=== PATIENT | male | born 2000 | race Hispanic/Latino ===

== ENCOUNTER 2021-11-10 17:27 | Emergency (ER) | payer SELFPAY ==
--- NOTE | ~2021-11-10 | CT_ITS ---
EXAMINATION: CT brain wo con DATE: 11/10/2021 18:35 INDICATION: head injury TECHNIQUE: Computed tomography (CT) of the head was performed without intravenous contrast. The mA wa s adjusted according to patient size. Iterative reconstruction technique was employed. The dose-lengt h product was 605.33 mGy-cm. COMPARISON: None FINDINGS: No acute intracranial hemorrhage or extra-axial fluid collection. No hydrocephalus, mass, or herniation. No acute ischemic infarct. Unremarkable dural venous sinus attenuation. No acute osseous abnormality. The aerated spaces are clear. IMPRESSION: No acute intracranial process. Reviewed, dictated and finalized at location K.
--- NOTE | ~2021-11-10 | CT_ITS ---
EXAMINATION: CT cervical spine wo con DATE: 11/10/2021 18:35 INDICATION: head injury, neck pain TECHNIQUE: Computed tomography (CT) of the cervical spine was performed without intravenous contrast. Automated exposure control and iterative reconstruction technique were employed. The dose-length pro duct was 458.50 mGy-cm. COMPARISON: None FINDINGS: Counting reference: Craniocervical junction. There are seven cervical type vertebral bodies. Anatomic Variants: None.. Vertebral Body Alignment: Intact. Craniocervical junction: No degenerative change. Alignment intact. Osseous structures/fracture: No evidence of a lytic or blastic process in the visualized spine. N o evidence of acute fracture. Cervical soft tissues: The paraspinal soft tissues planes are maintained. Degenerative changes: No significant degenerative changes. IMPRESSION: No acute fracture or traumatic malalignment in the cervical spine. Reviewed, dictated and finalized at location K.
[2021-11-10 17:33] VITALS: BP 156/96; PULSE 106; RESP 18; TEMP 37.2; O2SAT 100
--- NOTE | 2021-11-10 18:10 | ED.HA ---
HPI - Headache General Chief Complaint: Headache Stated Complaint: headache Time Seen by Provider: 11/10/21 18:06 History of Present Illness HPI Narrative: 21-year-old male presents the emergency room complaints of posterior headache and neck pain. Patient states about a week ago he excellently struck his head on a bed frame. Denied LOC or altered mental status at that time. Patient did state that lights and movement worsens his headache. Patient states he is tried multiple [id number] medications to relieve his symptoms and none of them have worked at this point. Patient states that moving his head to the right side and when he looks down aggravates the pain. Denies any visual or hearing changes. Related Data Allergies Allergy/AdvReac Type Severity Reaction Status Date / Time No Known Allergies Allergy Verified 02/08/18 17:43 Review of Systems Review of Systems: CONSTITUTIONAL: Denies fever, chills, or sweats. EYES: Denies visual changes, redness, or discharge. ENT: Denies rhinorrhea, congestion, sore throat, or otalgia. CARDIOVASCULAR: Denies chest pain, palpitations, or edema. RESPIRATORY: Denies cough or dyspnea. GASTROINTESTINAL: Denies abdominal pain, nausea, vomiting, or diarrhea. GENITOURINARY: Denies dysuria or hematuria. SKIN: Denies rash or itching. MUSCULOSKELETAL: Reports neck pain NEUROLOGIC: Reports headache PSYCHIATRIC: Denies anxiety or depression. Exam Narrative: GENERAL: Well-appearing, well-nourished, and in no acute distress. HEAD: Normocephalic, atraumatic. EYES: PERRLA and EOMI. CHEST: Clear to auscultation. No respiratory distress. No wheezes rales or rhonchi HEART: Regular rate and rhythm. No murmur heard. Normal peripheral pulses. ABDOMEN: Soft, nontender, nondistended, normal active bowel sounds. EXTREMITIES: Normal range of motion. No edema. NECK: Tenderness to the proximal aspect of the left trapezius muscle; full range of motion cervical spine. Bony abnormalities, no step-offs, no midline tenderness SKIN: Warm, dry, no rash. NEURO: No focal deficits. Alert and oriented x3. Cranial nerves II through XII grossly intact. PSYCH: Normal mood and affect. Course Vital Signs Vital signs: Vital Signs Temperature 37.2 C 11/10/21 17:33 Pulse Rate 106 H 11/10/21 17:33 Respiratory Rate 18 11/10/21 17:33 Blood Pressure 156/96 H 11/10/21 17:33 Pulse Oximetry 100 11/10/21 17:33 Temperature 37.2 C 11/10/21 17:33 Pulse Rate 106 H 11/10/21 17:33 Respiratory Rate 18 11/10/21 17:33 Blood Pressure 156/96 H 11/10/21 17:33 Pulse Oximetry 100 11/10/21 17:33 MDM - Headache MDM Narrative Medical decision making narrative: 21-year-old male presents emergency room for evaluation of a headache and neck pain. Patient states that he struck his head on the bed frame about a week ago and has had intermittent headaches since then. Patient does also admit that he has neck pain when he moves his head in certain locations. Differential Diagnosis Differential diagnosis: Likely headache Imaging Data Radiologist's impression: Impressions Cervical Spine CT 11/10/21 18:39 IMPRESSION: No acute fracture or traumatic malalignment in the cervical spine. Head CT 11/10/21 18:39 IMPRESSION: No acute intracranial process. Discharge Plan Discharge Clinical Impression: Headache Qualifiers: Headache type: unspecified Headache chronicity pattern: acute headache Intractability: not intractable Qualified Code(s): R51.9 - Headache, unspecified Cervical muscle strain Qualifiers: Encounter type: initial encounter Qualified Code(s): S16.1XXA - Strain of muscle, fascia and tendon at neck level, initial encounter Patient Disposition: Home, Self-Care Condition: Stable Instructions: Antibiotic Form, Head Injury (ED), Acute Headache (ED) Prescriptions: New methocarbamol 500 mg tablet 500 mg PO TID Qty: 14 RF: 0 Follow-up/Referrals: P
[2021-11-10] MEDS: KETOROLAC (*BKC) 60 MG/2 ML VIAL IM (18:24)
[2021-11-10 18:52] VITALS: BP 118/78; PULSE 74; RESP 16; O2SAT 100
== END 2021-11-10 18:54 | disposition home or self-care (01) ==
PROVIDERS: Emergency Provider Nurse Practitioner Family
DX: S09.90XA Unspecified injury of head, initial encounter (principal); S16.1XXA Strain of muscle, fascia and tendon at neck level, initial encounter; W22.03XA Walked into furniture, initial encounter
CPT/HCPCS: 70450; 72125; 96372; 99284; J1885

== ENCOUNTER 2022-10-27 23:03 | Observation (INO) | payer SELFPAY ==
--- NOTE | ~2022-10-27 | CT_ITS ---
EXAMINATION: CT abdomen pelvis w con DATE: 10/28/2022 02:48 INDICATION: Right lower quadrant pain and nausea TECHNIQUE: Computed tomography (CT) of the abdomen and pelvis was performed with 100 cc Omnipaque 350 intravenous contrast. The dose-length product was 477.08 mGy-cm. Automated exposure control and iter ative reconstruction technique were employed. COMPARISON: None. FINDINGS: Lung bases are unremarkable. No significant pleural or pericardial effusion. The liver, spl een, adrenal glands, pancreas and right kidney are unremarkable. There is a small cyst upper pole of the left kidney. Bladder wall is thickened which may be due to underdistention or cystitis. There is a thickened mildly enhancing appendix with subtle periappendiceal inflammation, suspicious for acute uncomplicated appendicitis. No evidence for perforation or abscess. Gallbladder is present. No free a ir or free fluid. No significant vascular abnormality. No lymphadenopathy. IMPRESSION: 1. Probable acute uncomplicated appendicitis. 2: Mildly thickened bladder wall which may be due to underdistention or cystitis. Reviewed, dictated and finalized at location A. IMPRESSION: 1. Probable acute uncomplicated appendicitis. 2: Mildly thickened bladder wall which may be due to underdistention or cystiti s.
[2022-10-27 23:04] VITALS: BP 164/98; PULSE 102; RESP 18; TEMP 36.2; O2SAT 100
--- NOTE | 2022-10-27 23:59 | ED.ABDPAIN ---
HPI - Abdominal Pain General Chief Complaint: Abdominal Pain <MAURICIO Person Last Filed: 10/28/22 03:23> Stated Complaint: abd pain <MAURICIO Person Last Filed: 10/28/22 03:23> Time Seen by Provider: 10/27/22 23:54 <MAURICIO Person Last Filed: 10/28/22 03:23> History of Present Illness HPI narrative: Patient is a healthy 22-year-old male here for evaluation of right lower quadrant abdominal pain. Patient states this pain began this afternoon after eating lunch which consisted of [employer]. He states he had no appetite all day and has been nauseated but has not vomited. States his pain acutely worsened about an hour ago and is concentrated in his right lower quadrant. Described as a sharp stabbing pain. He thought it was gas pain that he can sleep at outside, and when his pain worsened. He denies any fevers, chills, diarrhea or constipation. <Brittany Anguiano PA-C - Last Filed: 10/28/22 03:23> Related Data Allergies/Adverse Reactions: Allergies Allergy/AdvReac Type Severity Reaction Status Date / Time No Known Allergies Allergy Verified 10/28/22 08:29 <Brittany Anguiano PA-C - Last Filed: 10/28/22 03:23> Review of Systems Review of Systems: Gen.: Denies fevers or chills Eyes: Denies eye pain or visual change ENT: Denies congestion Respiratory: Denies shortness of breath or cough CV: Denies chest pain or palpitations GI: Reports abdominal pain, nausea. denies emesis or diarrhea denies burning, urgency, frequency or hematuria Musculoskeletal: Denies back pain or muscle pain Neuro: Denies numbness, tingling, weakness or focal weakness Skin: Denies rash Except as documented, all other systems reviewed and negative <MAURICIO Person Last Filed: 10/28/22 03:23> PMFSH Past Medical History Medical History: Medical History Anxiety Overweight <JOSSELINE Person-C - Last Filed: 10/28/22 03:23> Surgical History Surgical History: Surgical History H/O of nasal cauterization <Brittany Anguiano PA-C - Last Filed: 10/28/22 03:23> Family History Family History: Family History Grandparent Acute myocardial infarction Diabetes mellitus Hypertension Dementia Alcohol addiction Sibling Asthma Mother Hypertension Father Alcohol addiction <Brittany Anguiano PA-C - Last Filed: 10/28/22 03:23> Social History Social History: Social History Smoking status: Never smoker Alcohol intake: current Drinks per week: 2 Substance use: never Lack of Transportation: No Lack of Food: Never True Current Housing: I Have Housing Concerned About Future Housing: No Difficulty Paying Gas/Electric Bills: No Difficulty Paying for Meds: No Currently Unemployed: No Education: High School Diploma/GED Difficulty w/ Childcare or Family Care: No Spiritual care concerns: No <Brittany Anguiano PA-C - Last Filed: 10/28/22 03:23> Exam Narrative: APPEARANCE: Well appearing, no pain in distress, well-nourished. Head: Normocephalic and atraumatic. EYES: PERRLA/EOMI, conjunctivae clear NOSE: No nasal drainage EARS: External ear normal in appearance THROAT: Oropharynx is clear. Mucous membranes are moist. NECK: Supple. No adenopathy, no masses. RESPIRATORY: Airway patent, respirations nonlabored. Clear to auscultation bilaterally, no rales, rhonchi, wheezing. CARDIOVASCULAR: Regular rate and rhythm without murmurs, rubs, or gallops. ABDOMINAL: Tenderness to palpation in the right lower quadrant. No rebound tenderness or guarding. MUSCULOSKELETAL: Extremities are warm and well-perfused. Moves all extremities well. No edema. NEURO: Normal speech. No focal neurologic
[2022-10-28] VITALS (25 sets, daily range): BP systolic 123–150; BP diastolic 69–104; PULSE 66–90; RESP 14–18; TEMP 36.4–36.8; O2SAT 94–100; BMI 28.0
[2022-10-28] MEDS: MORPHINE SULFATE (*CRX) 2 MG/ML INJ IV PUSH ×3 (00:07→18:24)
[2022-10-28] MEDS: ONDANSETRON INJ 4 MG/2 ML VIAL IV PUSH ×3 (00:07→18:22)
[2022-10-28] MEDS: SODIUM CHLORIDE 0.9% IV 1,000 ML 999 ML IV CONT (00:08)
[2022-10-28 00:26] LABS: Basophils Absolute Auto 0.1 K/mm3 (0.0-0.1); Basophils Percent Auto 0.7 % (0.2-1.2); Eosinophils Absolute Auto 0.5 K/mm3 (0-0.3); Eosinophils Percent Auto 5.8 % (0-4.4); Hematocrit 47.8 % (42.0-52.0); Hemoglobin 15.9 g/dL (14.0-18.0); Immature Granulocyte Absolute 0.03 K/mm3 (0.00-0.031); Immature Granulocyte Percent A 0.3 % (0-0.5); Lymphocytes Absolute Auto 2.87 K/mm3 (0.9-3.2); Lymphocytes Percent Auto 31.4 % (18.3-44.2); Mean Corpuscular HGB Conc 33.3 g/dl (32-36); Mean Corpuscular Hemoglobin 26.3 pg (26-34); Mean Platelet Volume 9.3 fl (7.4-10.4); Monocytes Absolute Auto 0.5 K/mm3 (0.1-0.6); Monocytes Percent Auto 5.9 % (2.6-8.5); Neutrophils Absolute Auto 5.1 K/mm3 (1.3-6.7); Neutrophils Percent Auto 55.9 % (45.5-73.1); Platelet Count Result 242 k/mm3 (150-375); Red Blood Count 6.05 M/mm3 (4.6-6.20); Red Cell Distribution Width 14.6 % (11.5-14.5); White Blood Count 9.2 K/mm3 (4.5-10.0)
[2022-10-28 00:37] LABS: Alanine Aminotransferase 37 U/L (6-50); Albumin Level 4.9 g/dL (3.5-5.1); Alkaline Phosphatase 109 U/L (38-126); Anion Gap 7 mmol/L (8-16); Aspartate Amino Transferase 34 U/L (17-59); Bilirubin,Total 0.6 mg/dL (0.2-1.3); Blood Urea Nitrogen 11 mg/dL (9-20); Calcium 9.3 mg/dL (8.4-10.2); Carbon Dioxide 29 mmol/L (22-30); Chloride 103 mmol/L (98-107); Estimated CRCL calculation 113 ml/min; Estimated Glomerular Filt Rate > 60; Glucose 103 mg/dL (65-110); Lactic Acid Reflex 0.8 mmol/L (0.7-2.0); Lipase 102 U/L (23-300); Potassium 3.5 mmol/L (3.4-5.0); Sodium 139 mmol/L (137-145)
[2022-10-28 02:53] LABS: Appearance Urine Clear (Clear); Bilirubin Urine Negative (Negative); Blood Urine Negative (Negative); Color Urine Yellow (Yellow); Glucose Urine UA Negative (Negative); Ketones Urine Negative (Negative); Leukocyte Esterase Ur Negative LEU/UL (Negative); Nitrate Urine Negative (Negative); Protein Urine Negative (Negative); Urobilinogen Urine 0.2 mg/dL (<2.0); pH Urine 6.5 (5.0-9.0)
[2022-10-28 03:34] LABS: Add Urine Microscopic? NO; Specific Grav Ur 1.037 (1.001-1.035)
--- NOTE | 2022-10-28 03:49 | ADMGEN ---
This patient, Robel Bhagat, was admitted to 2 Medical Room 259-01. Patient/family oriented to hospital policies and general routines including ID bracelet, bed and alarms, visiting hours, pain management, procedures, bathroom and other care routines, personal items, smoking policy, room service/diet, and visiting hours. Information on how to activate the Rapid Response Team has been discussed. Patient/Family are encouraged to report perceived risks to care and to ask questions if they do not understand what they are told or what they should do.
[2022-10-28] MEDS: SODIUM CHLORIDE 0.9% IV 1,000 ML 125 ML IV CONT (04:50)
--- NOTE | 2022-10-28 08:09 | WPDANESEPPF ---
Anes - Initial Pre Proc Eval Procedure: Operation Date: 10/28/22 09:00 Proposed Procedures p Laparoscopic Appendectomy - Daphne Palacios MD Date/Time: 10/28/22 08:09 Surgeon: Daphne Palacios MD Pre Op Diagnosis: acute appendicitits Patient Data Age: 22 Gender: M Height: 1.75 m Weight: 86 kg Last Vital Signs Temp 36.4 C L 10/28/22 06:00 Pulse 83 10/28/22 06:00 Resp 18 10/28/22 06:00 BP 144/99 H 10/28/22 06:00 Pulse Ox 100 10/28/22 06:00 O2 Del Method Room Air 10/28/22 03:59 Home Medications Medication Instructions Recorded Confirmed Type No Home Medications 10/28/22 10/28/22 History Laboratory Tests 10/27/22 10/27/22 10/27/22 23:58 23:58 23:58 WBC 9.2 K/mm3 K/mm3 (4.5-10.0) RBC 6.05 M/mm3 M/mm3 (4.6-6.20) Hgb 15.9 g/dL g/dL (14.0-18.0) Hct 47.8 % % (42.0-52.0) MCV 79.0 fl L fl (80-100) MCH 26.3 pg pg (26-34) MCHC 33.3 g/dl g/dl (32-36) RDW 14.6 % H % (11.5-14.5) Plt Count 242 k/mm3 k/mm3 (150-375) MPV 9.3 fl fl (7.4-10.4) Immature Gran % (Auto) 0.3 % % (0-0.5) Neut % (Auto) 55.9 % % (45.5-73.1) Lymph % (Auto) 31.4 % % (18.3-44.2) Gray % (Auto) 5.9 % % (2.6-8.5) Eos % (Auto) 5.8 % H % (0-4.4) Baso % (Auto) 0.7 % % (0.2-1.2) Lymph # (Auto) 2.87 K/mm3 K/mm3 (0.9-3.2) Gray # (Auto) 0.5 K/mm3 K/mm3 (0.1-0.6) Eos # (Auto) 0.5 K/mm3 H K/mm3 (0-0.3) Baso # (Auto) 0.1 K/mm3 K/mm3 (0.0-0.1) Abs Immat Gran (auto) 0.03 K/mm3 K/mm3 (0.00-0.031) Absolute Neuts (auto) 5.1 K/mm3 K/mm3 (1.3-6.7) Absolute Nucleated RBC 0.0 K/mm3 K/mm3 (0.0-0.012) Nucleated RBC % 0.0 % % (0.0-0.2) Sodium 139 mmol/L mmol/L (137-145) Potassium 3.5 mmol/L mmol/L (3.4-5.0) Chloride 103 mmol/L mmol/L (98-107) Carbon Dioxide 29 mmol/L mmol/L (22-30) Anion Gap 7 mmol/L L mmol/L (8-16) BUN 11 mg/dL mg/dL (9-20) Creatinine 0.90 mg/dL mg/dL (0.7-1.3) Estim Creat Clear Calc 113 ml/min ml/min Estimated GFR > 60 (59 - ) Glucose 103 mg/dL mg/dL (65-110) Lactic Acid 0.8 mmol/L mmol/L (0.7-2.0) Calcium 9.3 mg/dL mg/dL (8.4-10.2) Total Bilirubin 0.6 mg/dL mg/dL (0.2-1.3) AST 34 U/L U/L (17-59) ALT 37 U/L U/L (6-50) Alkaline Phosphatase 109 U/L U/L (38-126) Total Protein 9.0 g/dL H g/dL (6.3-8.2) Albumin 4.9 g/dL g/dL (3.5-5.1) Lipase 102 U/L U/L (23-300) Urine Color Urine Appearance Urine pH Ur Specific [place] Urine Protein Urine Glucose (UA) Urine Ketones Ur Blood (Man) Urine Nitrate Urine Bilirubin Urine Urobilinogen Leukocyte Esterase Rfl 10/28/22 02:46 WBC RBC Hgb Hct MCV MCH MCHC RDW Plt Count MPV Immature Gran % (Auto) Neut % (Auto) Lymph % (Auto) Gray % (Auto) Eos % (Auto) Baso % (Auto) Lymph # (Auto) Gray # (Auto) Eos # (Auto) Baso # (Auto) Abs Immat Gran (auto) Absolute Neuts (auto) Absolute Nucleated RBC Nucleated RBC % Sodium Potassium Chloride Carbon Dioxide Anion Gap BUN Creatinine Estim Creat Clear Calc Estimated GFR Glucose Lactic Acid Calcium Total Bilirubin AST ALT Alkaline Phosphatase Total Protein Albumin Lipase Urine Color Yellow (Yellow) Urine Appearance Clear
[2022-10-28] MEDS: LACTATED RINGERS 1,000 ML 30 ML IV CONT ×2 (08:28→09:56)
--- NOTE | 2022-10-28 08:55 | PM.IMHP ---
H&P: HPI History of Present Illness Date/Time: 10/28/22 08:55 Chief Complaint: acute appendicitis Narrative: The pt is a 22 y/o M presenting to ED c/o severe RLQ abd pain. Pt reports pain has been present since after lunch yesterday but acutely localized and worsened last night. Pt reports pain was initially mild, diffuse. Pt reports assoc nausea and anorexia. Pt denies any previous episodes. Review of Systems Constitutional: Constitutional: Reports as per HPI, Reports anorexia, Reports fatigue, Denies fever(s), Reports lethargy, Denies malaise, Reports poor appetite, Denies stops breathing during sleep, Denies weakness, Denies weight gain and Denies weight loss Eyes: Eyes: Reports no additional eye complaints ENT: Reports system reviewed and no additional complaints, except as documented Cardiovascular: Cardiovascular: Reports no additional cardiovascular complaints Respiratory: Respiratory: Reports no additional respiratory complaints Gastrointestinal: Gastrointestinal: Reports as per HPI, Reports abdominal pain, Denies bloating, Denies change in bowel habits, Denies constipation, Reports GI cramping, Denies early satiety, Denies heartburn, Denies diarrhea, Denies loose stools, Reports nausea and Denies vomiting Musculoskeletal: Musculoskeletal: Reports no additional musculoskeletal complaints Integumentary/Breasts: Skin/Breast: Reports system reviewed and no additional complaints, except as docu Neurologic: Reports system reviewed and no additional complaints, except as documented Psychiatric: Psychiatric: Reports no additional psychiatric complaints Endocrine: Endocrine: Reports no additional endocrine complaints Hematologic/Lymphatic: Hematologic/Lymphatic: Reports no additional hematologic/lymphatic complaints Allergic/Immunologic: Allergic/Immunologic: Reports no additional allergic/immunologic complaints PMFSH Past Medical History Medical History Anxiety Overweight Surgical History Surgical History H/O of nasal cauterization Family History Family History Grandparent Acute myocardial infarction Diabetes mellitus Hypertension Dementia Alcohol addiction Sibling Asthma Mother Hypertension Father Alcohol addiction Social History Social History Smoking status: Never smoker Alcohol intake: current Drinks per week: 2 Substance use: never Lack of Transportation: No Lack of Food: Never True Current Housing: I Have Housing Concerned About Future Housing: No Difficulty Paying Gas/Electric Bills: No Difficulty Paying for Meds: No Currently Unemployed: No Education: High School Diploma/GED Difficulty w/ Childcare or Family Care: No Spiritual care concerns: No Meds Home Medications and Allergies Home Medications Medication Instructions Recorded Confirmed Type No Home Medications 10/28/22 10/28/22 History Allergies Allergy/AdvReac Type Severity Reaction Status Date / Time No Known Allergies Allergy Verified 10/28/22 08:29 Vital Signs Vital Signs - 24 hr 10/27/22 23:04 10/28/22 03:44 10/28/22 03:59 Temperature 36.2 C L 36.6 C Pulse Rate 102 H 89 Respiratory Rate 18 18 Blood Pressure 164/98 H 131/69 Pulse Oximetry 100 99 Oxygen Delivery Room Air Room Air 10/28/22 00:05 10/28/22 00:15 10/28/22 00:33 Temperature Pulse Rate Respiratory Rate Blood Pressure Pulse Oximetry 100 100 100 Oxygen Delivery 10/28/22 00:45 10/28/22 01:00 10/28/22 01:01 Temperature 36.6 C Pulse Rate 90 Respiratory Rate 18 Blood Pressure 133/91 H Pulse Oximetry 100 100 100 Oxygen Delivery 10/28/22 01:26 10/28/22 01:30 10/28/22 03:49 Temperature 36.4 C L Pulse Rate 85 Respiratory Rate 18 Blood
--- NOTE | 2022-10-28 09:00 | WPDHPUPDATE1 ---
History and Physical Update Update Date/Time: 10/28/22 09:00 History and Physical has been reviewed, including an updated exam of the patient. There are NO changes in the patient's condition. Risks, benefits, and alternatives have been discussed and questions answered. Patient agrees to proceed with procedure.
[2022-10-28] MEDS: ceFAZolin 2 GM/D5W 50 ML 2 GM/50 ML BAG IVPB (09:04)
[2022-10-28] MEDS: BUPIVACAINE/EPINEPHRINE 0.5% 50 ML VIAL INFILTRATE (09:33)
[2022-10-28] MEDS: KETOROLAC 30 MG/ML VIAL (*BKC) IV PUSH (09:39)
--- NOTE | 2022-10-28 09:49 | P.OP_ITS ---
Procedure Note - Detailed Date of Procedure 10/28/22 Pre-op Diagnosis acute appendicitits Post-op Diagnosis Same Procedure Performed laparoscopic appendectomy Surgeon Daphne Palacios MD Anesthesia General Indications 22 y/o M presenting to ED c acute appendicitis Findings acute appendicitis no evidence of perforation Description of Procedure The patient was taken to the operating room and placed in the supine position. After adequate induction of general anesthesia, the patient was prepped and draped in the normal sterile fashion. A time-out was then done to verify the patient's identity, as well as the procedure being performed. I began by making a 5 mm incision in the infraumbilical region, through this a Veress needle was placed in the peritoneal cavity. CO2 gas was then insufflated and after ad equate pneumoperitoneum was achieved the Veress needle was removed. Then placed a 5 mm Optiview trocar under direct visualization into the peritoneal cavity. I then insufflated through this trocar site and the endoscope was placed into the trocar. Under direct visualization, placed 2 further 5 mm suprapubic port as well as an additional 12 mm port in the left lower abdomen. At this point ident ified the cecum, I retracted the cecum both medially and superiorly allowing me to expose the appendix. The appendix was noted to be dilated and inflamed. The appendix was noted to be adherent to the right lateral sidewall as well as the ileum. I was able to bluntly dissect the appendix from these adhesions. I then was able to locate the base of the appendix with the cecum. I created a window with the [place] dissector between the appendix itself and the mesoappendix. I then transected the mesoappendix with a white vascular staple load x 2. The Endo-VLAD was then reloaded with a blue staple load and I transected the base of the appendix. Once the specimen was completely detached, an endo-pouch was placed into the 12 mm port site and the specimen was removed through the endo- pouch. The appendiceal specimen will be sent to pathology for further review. I then copiously irrigated the right lower quadrant. Hemostasis was noted at the staple lines no other pathology was seen in this area. I then moved the camera to the suprapubic port to check our its port of entry. No iatrogenic injury or other pathology was noted in the upper abdomen. I then closed the 12 mm port site with a Marvel code and 0 Vicryl suture under direct visualization. At this point, the abdomen was desufflated and all ports were removed. All port sites were closed with 4 Monocryl subcuticular suture. Dermabond was placed on all wounds. The patient tolerated the procedure well and was extubated in the operating room postop. He will be sent to the recovery room in stable condition. Estimated Blood Loss 10 Urine Output 500 Drains No Packing No Pathology Yes Complications No immediate complications Condition Stable Disposition PACU [facility] Billing Surgery - Charge Forward: Surgery Billing
[2022-10-28] MEDS: fentaNYL CITRATE INJ (*CRX) 100 MCG/2 ML VIAL 25 MCG IV PUSH (10:59)
[2022-10-28] MEDS: HYDROcodone/acetaminophen (*CRX) 7.5-325 MG TABLET 1 TAB PO (14:41)
[2022-10-29] VITALS: BP 138/93; PULSE 69; RESP 18; TEMP 36.5; O2SAT 99
[2022-10-29 04:00] VITALS: BP 148/95; PULSE 86; RESP 18; TEMP 36.6; O2SAT 96
[2022-10-29 08:00] VITALS: BP 129/89; PULSE 89; RESP 18; TEMP 37.2; O2SAT 100
[2022-10-29] MEDS: HYDROcodone/acetaminophen (*CRX) 7.5-325 MG TABLET 1 TAB PO (08:05)
--- NOTE | 2022-10-29 11:03 | PM.DS ---
DS: Admitting Diagnosis Discharge Date 10/29/2022 Admitting Diagnosis acute appendicitis DS: Discharge Diagnosis Discharge Diagnosis (1) Acute appendicitis: Code(s): K35.80 - Unspecified acute appendicitis Status: Acute Assessment and Plan: doing well, routine postoperative care, await path, home with p.o. analgesia and Colace, follow-up 2 weeks DS: Summary Hospital Course Reason for hospitalization: acute appendicitis Hospital Course: The patient is a 22-year-old male presenting to the emergency department complaining of severe right lower quadrant abdominal pain. Workup including imaging, was significant for acute appendicitis. Given these findings, the patient was admitted to the surgical service and started on IV antibiotics. Upon evaluation, the decision was made for urgent appendectomy. The patient was taken to the operating room and laparoscopic appendectomy was performed. Please see operative report for details of that procedure. Postoperatively the patient did complain of incisional soreness and nausea and vomiting. This slowly resolved over postoperative day 0. . By postoperative day 1. , the patient was her diet and is incisional pain was much better controlled. At this time the patient be discharged home with p.o. analgesia and Colace. He will follow up with me in 2 weeks. Status at Discharge Functional status at discharge: independent ambulation Overall status at discharge: patient is progressing back to baseline Time Spent with Patient Time attestation: Total time spent providing and/or coordinating discharge services: Time spent: Less than 30 minutes Exam Const: General: cooperative, comfortable and no acute distress Resp: Auscultation: clear to auscultation bilaterally Cardio: Rate: regular rate Rhythm: regular rhythm GI: Inspection: normal to inspection, distended and incision GI Palp: Yes abdominal tenderness, Yes Soft to palpation, Yes Tenderness to palpation present (GI), No Guarding due to palpation present (GI) and No Rigid due to palpation DS: Data Data Completed and Pending Pending studies at discharge: Pending at discharge 10/28/22 11:14 Surgical [PTH] Routine Discharge Plan Discharge Attending physician on discharge: Daphne Palacios Discharging Clinician: Daphne Palacios Anticipated Discharge Date/Time: 10/29/22 11:03 Patient Disposition: Home, Self-Care Activity: other - see discharge instructions Diet: as tolerated Wound Care Instructions: other - see discharge instructions Discharge Instructions: DISCHARGE INSTRUCTION SHEET FOR HERNIA, GALLBLADDER AND APPENDIX SURGERIES DR. PALACIOS PATIENT TO TAKE HOME 1. May shower in 24 hours, no soaking in bath x 2weeks. 2. Call office for: Wound increasingly painful or bleeding Vomiting Fever of greater than 101 degrees 3. If no bowel movement for three days, take 1 oz. (30 ml) Milk of Magnesia or MiraLax 17g 1 to 2 times daily. 4. No heavy lifting > 10-15 pounds x 6 weeks for hernia repairs and 2 weeks for laparoscopic cholecystectomy or appendectomy. 5. No driving for 3 days or while taking narcotic pain medications. 6. Ice to surgical site for 48 hours (30 min on, then 30 min off). 7. Up walking 10-30 minutes three times per day. 8. Resume previous home medications. 9. Follow-up 10-14 days in office for wound check or as previously scheduled. ([phone]) 10. Oral pain medications prescription to be sent to pharmacy. Take Tylenol 500mg every 6 hours and Ibuprofen 600mg every 6 hours for the first 2 days, then as needed. 11. NUTRITION: Start out by drinking fluids and increase your diet as tolerated. If you experience nausea, try dry toast, crackers, and 7-UP. If nausea or vomiting persists, contact your surgeon?s office. 12. Gallbladders-Low Fat Diet for 2 weeks (send care note of low fat diet) 13. Ingu
== END 2022-10-29 12:22 | disposition home or self-care (01) ==
LOC: ANHED 10-28 00:25 → ANH2MED 10-28 03:13
PROVIDERS: Admitting Provider Surgery; Emergency Provider Physician Assistant; Visit Provider Surgery
PROC: 0DTJ4ZZ Resection of Appendix, Percutaneous Endoscopic Approach (ICD-10-PCS; CPT 44970; principal; 2022-10-28 09:00)
DX: K35.80 Unspecified acute appendicitis (principal); F41.9 Anxiety disorder, unspecified; E66.3 Overweight; Z68.28 Body mass index [BMI] 28.0-28.9, adult; F10.90 Alcohol use, unspecified, uncomplicated; R00.0 Tachycardia, unspecified; N32.89 Other specified disorders of bladder
CPT/HCPCS: 44970; 36415; 74177; 80053; 81003; 83605; 83690; 85025; 88304; 96361; 96374; 96375; 99285; A9270; G0378; J0330; J0690; J1885; J2250; J2270; J2405; J2704; J3010; J7030; J7120; Q9967

== ENCOUNTER 2025-02-08 23:13 | Emergency (ER) | payer BC, SELFPAY ==
--- NOTE | ~2025-02-08 | XR_ITS ---
EXAMINATION: XR chest 2V DATE: 02/08/2025 23:37 INDICATION: Chest pain TECHNIQUE: PA and lateral views of the chest were obtained. COMPARISON: None FINDINGS: The lungs are clear with no focal airspace opacities, pulmonary edema, pleural effusion or pneumothor ax. The cardiomediastinal silhouette is normal. Visualized bones and soft tissues are unremarkable. IMPRESSION: 1. No acute cardiopulmonary disease. Reviewed, dictated and finalized at location A.
--- NOTE | 2025-02-08 23:15 | ECG_ITS ---
Test Date: 2025-02-08 23:26:47 Measurements Intervals [place]lett Rate: 90 P: 25 RI: 115 QRS: 33 QRSD: 98 T: 33 QT: 320 QTc: 393 Interpretive Statements SINUS RHYTHM WITH SHORT RI INTERVAL MINIMAL Q WAVES- HIGH LATERAL LEADS BASELINE ARTIFACT- I, II, AVR, AVL BORDERLINE ECG No previous ECG available for comparison Electronically Signed On 02-09-2025 08:16:44 CDT by Arden Alberto D.O.
--- OUTSIDE RECORDS SUMMARY | 2025-02-08 23:16 | XMS_ITS | Clinical Summary ---
Author Organization [facility] Address [address] [facility] [place] [address] Care Team Providers Care Retail Loss Prevention Officer Name Role Phone Sofiya Sanchez MD Primary Care Provider [phone] Source Comments [facility],non-owned Affiliates and Associated Physician Practices is amultiple site organization consisting of ambulatory clinics and hospital sitesin [place], [place], [place] and [place]. This disclosure is being madepursuant to the Care Everywhere program and may not contain all information available regarding this patient. Last updated 18.[facility] GMI Ratings Allergies No known active allergies Medications * This document contains information received from the source organization and may not represent a complete record from that organization. * Be aware that medications may not be up to date on this document. Alwaysverify current medications with the patient. albuterol (PROVENTIL;DONNA TOLIN) (2.5 MG/3ML) 0.083% nebulizer solution Inhale by mouth as needed Active loratadine (CLARITIN) 10 MG tablet Take 10 mg by mouth as needed Active polyethylene glycol 3350 (MIRALAX) packet Take 17 g by mouth 2 times daily. 14 Packet 2 11/19/19 11 Active Additional Information Patient taking differently:17 g OralPRN, Reported on 02/22/2018 ibuprofen (MOTRIN) 200 MG tablet Take 600 mg by mouth every 6 hours as needed for Pain Active multivitamin daily (THERAGRAN) tablet Take 1 Tab by mouth daily with food Active docusate sodium (COLACE) 100 MG capsuleIndicat ions:Constipat ion Take 100 mg by mouth as needed Reasons: Constipation Active omeprazole (PRILOSEC) 20 MG capsuleIndicat ions:Gastroeso phageal Reflux Disease Take 20 mg by mouth daily before breakfast Reasons: Gastroesophageal Reflux Disease Active SUMAtriptan (IMITREX) 100 MG tablet Take medication at the onset of migraine, may repeat in 2 hours 9 tablet 5 08/08/19 19 Active topiramate (TOPAMAX) 50 MG tabletIndicati ons:Migraine 50 mg in morning (1 tablet) and 100 mg at night (2 tablets) Reasons: Migraine Headache 90 tablet 2 02/02/20 19 Active Active Problems Problem Noted Date Diagnosed Date Intractable migraine without aura and without status migrainosus 11/12/2018 Abdominal pain, generalized 06/14/2018 Iron deficiency 04/17/2018 Migraines 01/16/2018 Duodenitis 10/03/2017 Vitamin D deficiency 05/17/2017 Resolved Problems Problem Noted Date Diagnosed Date Resolved Date Constipation 08/21/2017 12/10/2018 Acute pain of right knee 05/01/2015 Knee MCL sprain 05/01/2015 05/03/2018 Arm pain 10/31/2011 05/03/2018 Family History Medical History Relation Name Comments Seizures Brother Migraine Mother Relation Name Status Comments Brother Mother Social History Tobacco Use Types Packs/Day Years Used Date Smoking Tobacco: Never Smokeless Tobacco: Never Alcohol Use Standard Drinks/Week Comments No 0 (1 standard drink = 0.6 oz pur e alcohol) Sex and Gender Information Value Date Recorded Sex Assigned at Not on file 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 Gender Identity Not on file Sexual Orientation Not on file Last Filed Vital Signs Vital Sign Reading Time Taken Comments Blood Pressure 128/74 11/12/2018 11:14 AM CDT Pulse 83 11/12/2018 11:14 AM CDT Temperature 36.7 C (98.1 F) 11/12/2018 11:14 AM CDT Respiratory Rate 16 02/15/2018 6:45 PM CDT Oxygen Saturation 100% 02/15/2018 11:57 AM CDT Inhaled Oxygen Concentration - - Weight 65.3 kg (144 lb) 11/12/2018 11:14 AM CDT Height 174 cm (5' 8.5) 11/12/2018 11:14 AM CDT Body Mass Index 21.58 11/12/2018 11:14 AM CDT Plan of Treatment Health Maintenance Due Date Last Done Comments HIV SCREENING 2015 HPV VACCINE (1 - Male 3-dose series) 2015 HEPATITIS C SCREENING 04/02/2018 DTAP/TDAP/TD VACCINES (1 - Tdap) 2019 HEPATITIS B VACCINE (1 of 3 - 19+ 3-dose series) 2019 COVID-19 VACCINE (1 - 2023-2 5 season) 2024 DEPRESSION SCREENING 07/10/2024 INFLUENZA VACCINE (#1) 2025 ZOSTER VACCINE (1 of 2) 2050 HIB VACCINE Aged Out No longer eligi ble based on patient's age to complete this topic MENINGOCOCCAL (Group B) VACC INE SHARED DECISION-MAKING Aged Out No longer eligibl e based on patient's age to complete this topic MENINGOCOCCAL GROUPS A/C/Y/W VACCINE Aged Out No longer eligible b ased on patient's age to complete this topic PNEUMOCOCCAL VACCINE Aged Out No long er eligible based on patient's age to complete this topic Insurance MEDICAID - [place] MEDICAID - [facility] Care Teams Retail Loss Prevention Officer Relationship Specialty Start Date End Date Sofiya Sanchez MD [address] [place] [address] PCP - General 11/12/18
--- OUTSIDE RECORDS SUMMARY | 2025-02-08 23:16 | XMS_ITS | Encounter Summary ---
Author Organization [facility] Address [address] [place] [address] Care Team Providers Care Assistance Representative Name Role Phone Sofiya Sanchez MD Primary Care Provider [phone] Slick Antoine MD Primary Care Provider [phone] Sofiya Sanchez MD Primary Care Provider [phone] Encounter Details Date Type Department Care Team (Late st Contact Info) Description 02/15/2018 Ophth Exam 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 Gender Identity Not on file Sexual Orientation Not on file documented as of this encounter Plan of Treatment Not on file documented as of this encounter Visit Diagnoses Not on filedocumented in this encounter Care Teams Assistance Representative Relationship Specialty Start Date End Date Sofiya Sanchez MD [address] [place] [phone] PCP - General Pediatrics 05/03/18 07/24/18 Slick Antoine MD [address] [place] [phone] PCP - General 07/25/18 11/11/18 Sofiya Sanchez MD [address] [phone] PCP - General 11/12/18 documented as of this encounter
--- OUTSIDE RECORDS SUMMARY | 2025-02-08 23:16 | XMS_ITS | Clinical Summary ---
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 Sex Male 4:33 PM CAKE STRIPPER Gender Identity Not on file Sexual Orientation Not on file Plan of Treatment Health Maintenance Due Date Last Done Comments Annual Physical 2003 Hepatitis C 2018 DTaP, Tdap and Td Vaccines (7 - Td or Tdap) 03/09/2022 03/09/2012, 01/30/2006, 10/08/2001, Additional history exists COVID-19 Vaccine ( season) 2024 08/17/2021, 03/01/2021, 02/01/2021 Hepatitis B Vaccines Completed 01/08/2001, 2000, 2000 Pneumococcal Vaccine: Pediatrics (0 to 5 Years) and At-Risk Patients (6 to 49 Years) Completed 07/16/2001, 2000, 2000, Additional history exists Meningococcal Vaccine Aged Out 03/09/2012 No lucas kathya eligible based on patient's age to complete this topic HPV Vaccines Completed 02/15/2016, 03/09/2012 Meningococcal B Vaccine Aged Out No l onger eligible based on patient's age to complete this topic RSV Immunizations Under 20 Months Aged Out No longer eligible based on patient's age to complete this topic Insurance [facility] C/O PROVIDER SERVICES JOSSELINE HUNTER [id number] Care Teams Cooker Casing Relationship Specialty Start Date End Date None, Provider, PCP - General UNKNOWN PHYSICIAN SPECIALTY 09/10/24
--- OUTSIDE RECORDS SUMMARY | 2025-02-08 23:16 | XMS_ITS | Clinical Summary ---
Author Organization [facility] Address [address] [place] [address] Phone Care Team Providers Care Oxygen Plant Operator Name Role Phone Spring Mendoza MD Primary Care Provider Allergies No known active allergies Medications nitroGLYCERIN (NITROSTAT) 0.4 MG SL Tablet 0.4 mg by Sublingual route every 5 minutes as needed for Chest pain. Active VITAMIN D PO Take 50,000 Units by mouth once a week. Active aspirin EC 81 MG Tablet Delayed Response Take 81 mg by mouth daily. Active amLODIPine (NORVASC) 5 MG Tablet Take 5 mg by mouth daily. Active buPROPion (WELLBUTRIN) 300 MG TABLET SR 24 HR XL tablet Take 300 mg by mouth daily. Active busPIRone (BUSPAR) 10 MG Tablet Take 10 mg by mouth 2 times daily. Active QUEtiapine Fumarate (SEROquel) 50 MG Tablet Take 50 mg by mouth nightly. Active losartan (COZAAR) 50 MG Tablet Take 50 mg by mouth daily. Active propranolol (INDERAL) 20 MG Tablet Take 20 mg by mouth 2 times daily. Active atorvastatin (Lipitor) 20 MG Tablet Take 20 mg by mouth daily. Active Active Problems Problem Noted Date Diagnosed Date Chest pain 10/03/2024 Abnormal findings on diagnos tic imaging of heart and coronary circulation 10/03/2024 Essential (primary) hypertension 10/03/2024 Family History Medical History Relation Name Comments No Known Problems Father Hypertension Mother Relation Name Status Comments Father Alive Mother Alive Social History Tobacco Use Types Packs/Day Years Used Date Smoking Tobacco: Never Smokeless Tobacco: Never Tobacco Cessation:Counseling Given: Not Answered Alcohol Use Standard Drinks/Week Comments Yes 1 (1 standard drink = 0.6 oz pur e alcohol) COUPLE TIMES A MONTH Sex and Gender Information Value Date Recorded Sex Assigned at Not on file Legal Sex Male 12:01 PM CDT Gender Identity Not on file Sexual Orientation Not on file Last Filed Vital Signs Vital Sign Reading Time Taken Comments Blood Pressure 123/90 10/28/2024 7:27 AM CDT Pulse 65 10/28/2024 7:27 AM CDT Temperature 36.9 C (98.4 F) 10/28/2024 7:27 AM CDT Respiratory Rate 16 10/28/2024 7:27 AM CDT Oxygen Saturation 100% 10/28/2024 7:27 AM CDT Inhaled Oxygen Concentration - - Weight 79.9 kg (176 lb 3.2 oz) 10/28/2024 7:27 A M CDT Height 175.3 cm (5' 9) 10/28/2024 7:27 AM CDT Body Mass Index 26.02 10/28/2024 7:27 AM CDT Plan of Treatment Health Maintenance Due Date Last Done Comments Hepatitis C Virus (HCV) Screening 2000 SARS-COV-2 Immunization ( season) 2024 08/17/2021, 03/01/2021, 02/01/2021 Influenza Immunization (#1) 2025 Respiratory Syncytial Virus (RSV) Immunization (Adult) (1 - 1-dose 75+ series) 2075 Hepatitis B Immunization Completed 001, 2000, 2000 Pneumococcal Immunization Combined Completed 07/16/2001, 2000, 2000, Additional history exists Meningococcal Immunization (ACWY) Aged Out 03/09/2012 No longer eligible based on patient's age to complete this topic TdaP Immunization Completed 03/09/2012 Human Papillomavirus (HPV) Immunization Completed 02/15/2016, 03/09/2012 Rotavirus Immunization Aged Out No lo nger eligible based on patient's age to complete this topic Insurance [place]ICAID [place] Care Teams Oxygen Plant Operator Relationship Specialty Start Date End Date Spring Mendoza MD [address] [place] [id number] PCP - General Internal Medicine 10/03/24
--- OUTSIDE RECORDS SUMMARY | 2025-02-08 23:16 | XMS_ITS | Patient Health Record ---
Author Organization [facility] Address [address] [place] [address] Care Team Providers Care Companion Name Role Phone Ron Blair Unavailable [phone] Reason For Referral No Information Social History PRAPARE Question Answer Notes Date Completed/Updated: 12/16/2024 What is your current housing situation? I have h ousing Are you worried about losing your housing? No What is the highest level of school that you have finished? High school diploma or GED What is your current work situation? Unemployed and seeking work In the past year, have you o r any family members you live with been unable to get any of the following when it was really needed? Check all that apply I do not have problems meeting my needs Has lack of transportation k ept you from medical appointments, meetings, work or from getting things needed for daily living? Yes, it has kept me from non-medical meetings, appointments, work, or getting things needed for daily living How often do you see or talk to people that you care about and feel close to? (For example: talking to friends on the phone, visiting friends or family, going to bahai or club meetings) More than 5 times a week How stressed are you? Stress is when someone feels tense, nervous, anxious, or can\t sleep at night because their mind is troubled Somewhat In the past year have you sp ent more than 2 nights in a row in a [place] [facility] [place], fci, fpc center, or juvenile correctional facility? No Do you feel physically and e motionally safe where you currently live? Unsure In the past year, have you b een afraid of your partner or ex-partner? No PRAPARE Score: 6 Encounters Encounter Location Date Provider Diagnosis [address] [place] [address] 11/07/2024 Ron Blair [address] [place] [address] 12/17/2024 Ron Blair Plan Of Treatment No Information Insurance Providers Payer Name Payer Address Payer Phone Subscriber Number Group Number Insured Name Patient Relationship to Insured Coverage Start Date Coverage End Date [facility] [address] [place] [address] [id number] Robel Bhagat Self - patient is the insured 3
[2025-02-08 23:21] VITALS: BP 142/94; PULSE 96; RESP 20; TEMP 36.6; O2SAT 100
[2025-02-09 02:04] VITALS: BP 145/99; PULSE 92; RESP 18; O2SAT 98
--- OUTSIDE RECORDS SUMMARY | 2025-02-09 02:09 | XMS_ITS | Encounter Summary ---
Author Organization [facility] Address [address] [place] [address] Care Team Providers Care Security Software Engineer Name Role Phone Sofiya Sanchez MD Primary Care Provider [phone] Slick Antoine MD Primary Care Provider [phone] Sofiya Sanchez MD Primary Care Provider [phone] Encounter Details Date Type Department Care Team (Late st Contact Info) Description 02/15/2018 Ophth Exam [facility] Pediatrics - Ophthalmology [address] [place] [address] Abdon Cruz MD [address] [place] [address] DEPT OF OPHTHALMOLOGY [place], [place] Social History Tobacco Use Types Packs/Day Years Used Date Smoking Tobacco: Never Smokeless Tobacco: Never Alcohol Use Standard Drinks/Week Comments No 0 (1 standard drink = 0.6 oz pur e alcohol) Sex and Gender Information Value Date Recorded Sex Assigned at Not on file 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
--- OUTSIDE RECORDS SUMMARY | 2025-02-09 02:09 | XMS_ITS | Clinical Summary ---
Author Organization [facility] Address [address] [place] [address] Care Team Providers Care Agronomy Advisor Name Role Phone None, Provider Primary Care Provider Unavaila ble Social History Tobacco Use Types Packs/Day Years Used Date Smoking Tobacco: Never Assessed Sex and Gender Information Value Date Recorded Sex Assigned at Male 09/11/2024 10:22 AM TURN SEWER Legal Sex Male 4:33 PM TURN SEWER Gender Identity Not on file Sexual Orientation [...] patient's age to complete this topic Insurance [facility] C/O PROVIDER SERVICES JOSSELINE HUNTER [id number] Care Teams Agronomy Advisor Relationship Specialty Start Date End Date None, Provider, PCP - General UNKNOWN PHYSICIAN SPECIALTY 09/10/24
--- OUTSIDE RECORDS SUMMARY | 2025-02-09 02:09 | XMS_ITS | Clinical Summary ---
Author Organization [facility] Address [address] [facility] [place] [address] Care Team Providers Care Suction Operator Name Role Phone Sofiya Sanchez MD Primary Care Provider [phone] Source Comments [facility],non-owned Affiliates and Associated Physician Practices is amultiple site organization consisting of ambulatory clinics and hospital sitesin [place], [place], [place] and [place]. This disclosure is being madepursuant to the Care Everywhere program and may not contain all information available regarding this patient. 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
--- OUTSIDE RECORDS SUMMARY | 2025-02-09 02:09 | XMS_ITS | Clinical Summary ---
Author Organization [facility] Address [address] [place] [address] Phone Care Team Providers Care Professional Athletes Coach Name Role Phone Spring Mendoza MD Primary [...] Insurance MEDICAID [place] Care Teams Professional Athletes Coach Relationship Specialty Start Date End Date Spring Mendoza MD [address] [place] [phone] PCP - General Internal Medicine 10/03/24
--- NOTE | 2025-02-09 03:16 | ED.CHESTPAIN ---
HPI - Chest Pain General Chief Complaint: Chest Pain Stated Complaint: Elevated BP, irreg HB ,chest pain Time Seen by Provider: 02/09/25 01:52 History of Present Illness HPI narrative: Patient with history of hypertension presents here with concern that his blood pressure is higher than usual, he has checked it every day for the past week and has been above 140/90. He is on amlodipine. Also thinks sometimes his heart rate higher than usual. Related Data Allergies Allergy/AdvReac Type Severity Reaction Status Date / Time No Known Allergies Allergy Verified 02/08/25 23:14 Review of Systems Review of Systems: All systems reviewed & are unremarkable except as noted in HPI and below PMFSH Past Medical History Medical History Anxiety Overweight Surgical History Surgical History H/O of nasal cauterization S/P laparoscopic appendectomy 10/28/22 Family History Family History Grandparent Acute myocardial infarction Diabetes mellitus Hypertension Dementia Alcohol addiction Sibling Asthma Mother Hypertension Father Alcohol addiction Social History Social History Smoking status: Never smoker Alcohol intake: current Drinks per week: 2 Substance use: never Lack of Transportation: No Lack of Food: Never True Current Housing: I Have Housing Concerned About Future Housing: No Difficulty Paying Gas/Electric Bills: No Difficulty Paying for Meds: No Currently Unemployed: No Education: High School Diploma/GED Difficulty w/ Childcare or Family Care: No Spiritual care concerns: No Exam Narrative: EXAMINATION OF ORGAN SYSTEMS/BODY AREAS: Constitutional: Vital signs per nursing GENERAL:[No acute distress, non-toxic appearing.] HEAD: Normal with no signs of head trauma. EYES: EOMI, conjunctiva normal ENT: Hearing grossly intact LUNGS: Nonlabored breathing. Clear to auscultation bilaterally HEART: [Regular rate and rhythm], normal equal regular bilateral radial and DP pulses ABD: [Soft], [nontender to palpation] EXT: Normal range of motion SKIN: [No rashes or lesions.] NEURO: [Alert and oriented x 3. No gross focal sensory or strength deficits.] PSYCH: Normal affect Course Vital Signs Vital signs: Vital Signs Temperature 98 F 02/08/25 23:21 Pulse Rate 96 02/08/25 23:21 Respiratory Rate 20 02/08/25 23:21 Blood Pressure 142/94 H 02/08/25 23:21 Pulse Oximetry 100 02/08/25 23:21 Oxygen Delivery Room Air 02/08/25 23:21 Temperature 98 F 02/08/25 23:21 Pulse Rate 92 02/09/25 02:04 Respiratory Rate 18 02/09/25 02:04 Blood Pressure 145/99 H 02/09/25 02:04 Pulse Oximetry 98 02/09/25 02:04 Oxygen Delivery Room Air 02/09/25 02:04 MDM - Chest Pain MDM Narrative Medical decision making narrative: Patient with asymptomatic hypertension. No signs or symptoms of end organ dysfunction; no chest pain or shortness of breath, neurological deficits, severe headaches, visual disturbance, oliguria, or symptoms of dissection/AAA). He is already on amlodipine 5 mg daily so I will up him to 10 mg daily, with a short course,, patient expressed understanding of the instructions and strongly advised to follow-up with PMD for further management. Chest x-ray on my independent interpretation does not show any obvious consolidations or pneumothorax. EKG on my independent interpretation shows sinus rate with short CA but otherwise no ST elevation or depressions or signs of acute ischemia or arrhythmia. Patient comfortable with plan. 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 Discharge Plan Discharge Clinical Impression: Hypertension Patient Disposition: Home Condition: Stable Instructions: Chronic Hypertension (ED) Additional Instructions: Please follow up with your doctor; start taking the amlodipine at the higher dose; you can always return to the ER for any further issues. Patient Language: Indonesian Prescriptions: New amlodipine 10 mg tablet 10 mg PO DAILY Qty: 30 0RF No Action docusate sodium [Colace] 100 mg capsule 100 mg PO BID Qty: 20 0RF Follow-up/Referrals: PHYSICIAN,[employer] CONTACT PRINTER [Primary Care Provider] -
== END 2025-02-09 02:18 | disposition home or self-care (01) ==
LOC: ANHED 02-09 02:08
PROVIDERS: Emergency Provider Emergency Medicine
DX: I10 Essential (primary) hypertension (principal); E66.3 Overweight; Z68.25 Body mass index [BMI] 25.0-25.9, adult; R94.31 Abnormal electrocardiogram [ECG] [EKG]
CPT/HCPCS: 71046; 93005; 99283